=== PATIENT | male | born 1995 | race Caucasian/White ===

== ENCOUNTER 2016-10-21 09:01 | Emergency (ER) | payer BC ==
[~2016-10-21] VITALS: Ht 165.1 cm; Wt 65.8 kg
[~2016-10-21 09:01] MED LIST: IBUP-1050 PO; SULF800T23 PO
[2016-10-21 09:19] VITALS: Ht 165.1 cm; Wt 65.8 kg
[2016-10-21] MEDS ORDERED: OSEL30CA PO (09:29)
[2016-10-21] MEDS ORDERED: SODIUM CHLORIDE 0.9% 1000ML 1,000 ML IV STA (09:51)
[2016-10-21] MEDS ORDERED: KETOROLAC TROMETHAMINE 30 MG/ML VIAL IV STA (09:51)
--- NOTE | 2016-10-21 10:14 | EMERGENCY ROOM VISIT NOTE ---
History Report prepared by Jl: Danuta Bui Under the Supervision of: Dr. Josefina Plummer M.D. First contact with patient: 09:39 Chief Complaint: FLU LIKE SX Stated Complaint: PASSED OUT, FLU LIKE SYMPTOMS History of Present Illness The patient is a 21 year old male who presents to the Emergency Room with complaints of persistent flu-like symptoms that began 5 days ago. The patient states that he started with a sore throat and congestion. He was seen at [facility] 4 days ago and was put on Prednisone after his flu and strep tests came back negative. Since then, his symptoms have continued and he also developed a fever. Yesterday, he was seen at [facility]. His temperature was 104 at that time. His mono test was negative. He was put on Tamiflu and taken off of Prednisone. This morning, his temperature was 101. He states that he developed intense cramping pain in his abdomen and felt like he needed to have a bowel movement so he went the bathroom. Per patient's roommate, he heard a crash and found the patient unconscious on the floor for a few minutes. He believes he may have hit his head on the bathroom door when he fell. Currently, he complains of congestion and mild neck stiffness. The patient notes that he has been having difficulty sleeping since his symptoms began. He has been eating and drinking normally. He has not been on any antibiotics recently. Denies cough, chest pain, shortness of breath, or other complaints. He does not take Aspirin or blood thinners. Source of History: patient Onset: 5 days ago Position: other (global) Quality: other (flu-like symptoms) Timing: other (persistent) Associated Symptoms: + fevers, + sorethroat, No SOB, No chest pain, No cough Note: Other symptoms: mild neck stiffness, congestion Review of Systems See HPI for pertinent positives & negatives. A total of 10 systems reviewed and were otherwise negative. Past Medical & Surgical Medical Problems: (1) No significant past medical history Family History Heart disease Hypertension Social History Smoking Status: Never Smoker Alcohol Use: occasionally Drug Use: none Marital Status: single Housing Status: lives with roommate Occupation Status: [employer] student Current/Historical Medications Scheduled Amoxicillin (Amoxil), 500 MG PO TID Oseltamivir Phosphate (Tamiflu), 1 CAP PO BID Allergies Coded Allergies: No Known Allergies (Unverified , 06/06/16) Physical Exam Vital Signs Date Time Temp Pulse Resp B/P Pulse Ox O2 Delivery O2 Flow Rate FiO2 10/21/16 12:53 74 18 91/61 98 Room Air 10/21/16 11:51 37.1 71 16 100/49 96 Room Air 10/21/16 10:37 74 100/47 99 Room Air 75 110/56 94 87/55 10/21/16 09:19 38.5 76 20 148/79 95 Room Air Physical Exam Vital signs reviewed. General: Somewhat ill-appearing 21 year old male, in no significant distress. HEENT: No scleral icterus, PERRLA, neck supple. Atraumatic. Scant exudates on the tonsils bilaterally. Cardiovascular: Regular rate and rhythm, no extra sounds. Pulmonary: Clear to auscultation bilaterally, normal work of breathing. Abdomen: Soft, nontender, nondistended, positive bowel sounds. Musculoskeletal: Atraumatic, no peripheral edema. Neurologic: Patient awake alert and oriented x 3, full strength in all 4 extremities. Cranial nerves 2 through 12 grossly intact. No meningeal signs. Skin: Warm, dry, no rash Medical Decision & Procedures Laboratory Results 10/21/16 10:15 Red Blood Count 4.36, Mean Corpuscular Volume 91.7, Mean Corpuscular Hemoglobin 31.2, Mean Corpuscular Hemoglobin Concent 34.0, Mean Platelet Volume 10.4, Neutrophils (%) (Auto) 78.0, Lymphocytes (%) (Auto) 7.9, Monocytes (%) (Auto) 13.5, Eosinophils (%) (Auto) 0.0, Basophils (%) (Auto) 0.3, Neutrophils # (Auto ) 8.38, Lymphocytes # (Auto) 0.85, Monocytes # (Auto) 1.45, Eosinophils # (Auto ) 0.00, Basophils # (Auto) 0.03 10/21/16 10:15 Test 10/21/16 10:15 White Blood Count 10.74 K/uL (4.8-10.8) Red Blood Count 4.36 M/uL (4.7-6.1) Hemoglobin 13.6 g/dL (14.0-18.0) Hematocrit 40.0 % (42-52) Mean Corpuscular Volume 91.7 fL (80-100) Mean Corpuscular Hemoglobin 31.2 pg (25-34) Mean Corpuscular Hemoglobin Concent 34.0 g/dl (32-36) Platelet Count 120 K/uL (130-400) Mean Platelet Volume 10.4 fL (7.4-10.4) Neutrophils (%) (Auto) 78.0 % Lymphocytes (%) (Auto) 7.9 % Monocytes (%) (Auto) 13.5 % Eosinophils (%) (Auto) 0.0 % Basophils (%) (Auto) 0.3 % Neutrophils # (Auto) 8.38 K/uL (1.4-6.5) Lymphocytes # (Auto) 0.85 K/uL (1.2-3.4) Monocytes # (Auto) 1.45 K/uL (0.11-0.59) Eosinophils # (Auto) 0.00 K/uL (0-0.5) Basophils # (Auto) 0.03 K/uL (0-0.2) RDW Standard Deviation 42.0 fL (36.4-46.3) RDW Coefficient of Variation 12.4 % (11.5-14.5) Immature Granulocyte % (Auto) 0.3 % Immature Granulocyte # (Auto) 0.03 K/uL (0.00-0.02) Anion Gap 9.0 mmol/L (3-11) Est Creatinine Clear Calc Drug Dose 84.7 ml/min Estimated GFR () 99.6 Estimated GFR (Non- 85.9 BUN/Creatinine Ratio 14.9 (10-20) Calcium Level 8.4 mg/dl (8.5-10.1) Total Bilirubin 0.8 mg/dl (0.2-1) Direct Bilirubin 0.2 mg/dl (0-0.2) Aspartate Amino Transf (AST/SGOT) 16 U/L (15-37) Alanine Aminotransferase (ALT/SGPT) 19 U/L (12-78) Alkaline Phosphatase 55 U/L (45-117) Total Protein 7.6 gm/dl (6.4-8.2) Albumin 3.7 gm/dl (3.4-5.0) Influenza Type A (RT-PCR) Neg for Influ A (NEG) Influenza Type A Antigen Neg for Influ A (NEG) Influenza Type B Antigen Neg for Influ B (NEG) Influenza Type B (RT-PCR) Neg for Influ B (NEG) Laboratory results per my review. Medications Administered Medications (Trade) Dose Ordered Sig/Fidencio Route Start Time Stop Time Status Last Admin Dose Admin Sodium Chloride (Nss 1000ml) 1,000 ml @ 999 mls/hr Q1H1M STAT IV 10/21/16 09:51 10/21/16 10:51 DC 10/21/16 09:51 999 MLS/HR Ketorolac Tromethamine (Toradol Inj) 30 mg NOW STAT IV 10/21/16 09:51 10/21/16 09:54 DC 10/21/16 10:15 30 MG ED Course 0950: Past medical records reviewed. The patient was evaluated in room C4. A complete history and physical examination was performed. 0951: Ordered Toradol Inj 30 mg IV, NSS 1000 ml @ 999 mls/hr IV. 1254: Upon reevaluation, the patient was feeling better. I discussed findings with him. He verbalized agreement of the treatment plan. The patient was discharged home. Medical Decision Differential diagnosis: Influenza, other viral illness, pneumonia, urinary tract infection, metabolic abnormality, medication effect, cellulitis, meningitis, intra-abdominal source, vasovagal syncope, orthostasis, cardiac arrhythmia. This patient was evaluated and appeared to be in no significant distress. IV access was obtained and laboratory work was drawn. The patient was hydrated with normal saline solution and given IV Toradol for pain and fever. Influenza swab is negative, strep swab is negative. This will be sent for formal culture. Patient was reassured regarding the findings. The patient was orthostatic on exam and should feel better now with IV hydration. He was discharged with instructions on fever management and oral hydration. He will follow-up with [facility] for further management. He will return to the ER for worsening of symptoms or any medical concerns. Impression Primary Impression: Orthostatic syncope Additional Impression: Influenza-like symptoms Scribe Attestation The scribe's documentation has been prepared under my direction and personally reviewed by me in its entirety. I confirm that the note above accurately reflects all work, treatment, procedures, and medical decision making performed by me. Departure Information Dispostion Home / Self-Care Prescriptions Amoxicillin (AMOXIL) 500 Mg Cap 500 MG PO TID, #30 CAP Prov: Josefina Plummer M.D. 10/22/16 Referrals [facility] (PCP) Patient Instructions My [facility] Additional Instructions Diagnosis: Influenza-like symptoms, syncope Drink plenty of clear fluids. Tylenol 650 mg every 6 hours as needed for pain or fever. Ibuprofen 600 mg every 6 hours as needed for pain or fever with food. Follow-up with [facility] this week for reevaluation. Return to the ER for worsening of symptoms or any medical concerns. Problem Qualifiers
[2016-10-21 10:41] LABS: MEAN CELL VOLUME 91.7 fL (80-100); MEAN CORPUSCULAR HEMOGLOBIN 31.2 pg (25-34); MEAN PLATELET VOLUME 10.4 fL (7.4-10.4); PLATELET COUNT 120 K/uL (130-400); RED BLOOD COUNT 4.36 M/uL (4.7-6.1); WHITE BLOOD COUNT 10.74 K/uL (4.8-10.8)
[2016-10-21 11:00] LABS: BUN/CREATININE RATIO 14.9 (10-20); CALCIUM 8.4 mg/dl (8.5-10.1); CREATININE 1.2 mg/dl (0.60-1.40); POTASSIUM 3.7 mmol/L (3.5-5.1)
[2016-10-21 11:33] LABS: BASO % 0.3 %; BASO ABS # 0.03 K/uL (0-0.2); COMPLETE YES; IG% 0.3 %; LYMPH % 7.9 %; LYMPH ABS # 0.85 K/uL (1.2-3.4); MONO % 13.5 %
[2016-10-21 11:51] VITALS: TEMP 37.1
[2016-10-21 12:35] LABS: INFLUENZA A PCR Neg for Influ A (NEG); INFLUENZA B PCR Neg for Influ B (NEG)
[2016-10-21 12:53] VITALS: BP 91/61; PULSE 74; O2SAT 98
[2016-10-22] MEDS ORDERED: AMOX500C3 PO (15:49)
--- NOTE | 2016-10-22 15:53 | EMERGENCY ROOM VISIT NOTE ---
ED Visit Note First contact with patient: 09:39 Formal throat culture is indicative of strep. Patient was notified via telephone and placed on amoxicillin 500 mg 3 times daily for 10 days. He will follow-up with [facility] for further management and return to the ER for worsening of symptoms or any medical concerns. Diagnosis: Strep pharyngitis
== END 2016-10-21 13:22 | disposition home or self-care (01) ==
LOC: C.EDB 09:02 → C.EDC 13:22
DX: R55 Syncope and collapse (principal); R50.9 Fever, unspecified; J02.9 Acute pharyngitis, unspecified